=== PATIENT | male | born 1965 | race Caucasian/White ===

== ENCOUNTER 2021-02-28 18:50 | Emergency (ER) | payer MEDICAID ==
[~2021-02-28] VITALS: Ht 193 cm; Wt 117.9 kg
[2021-02-28 18:55] VITALS: BP 131/77
[2021-02-28] MEDS ORDERED: dexamethasone sod phosphate 10mg/ml inj PO STA (18:59)
[2021-02-28 20:09] LABS: D-DIMER 0.39 MG/L FEU (0-0.50); HEMOGLOBIN 16.5 g/dl (14.0-17.9); RED CELL DISTRIBUTION WIDTH 14.2 % (11.5-14.5)
[2021-02-28 20:11] LABS: BASOPHILS % (AUTO) 0.6 % (0-1); EOSINOPHILS % (AUTO) 0.1 % (0-6); HEMATOCRIT 48.3 % (42.0-52.0); LYMPHOCYTES # (AUTO) 1.7 X10'3 (1.1-4.8); LYMPHOCYTES % (AUTO) 32.5 % (21-51); MEAN CORPUSCULAR HEMOGLOBIN 31.2 PG (27.0-31.0); MEAN CORPUSCULAR HGB CONC 34.1 g/dL (33.0-36.5); MEAN CORPUSCULAR VOLUME 91.5 FL (78-98); MEAN PLATELET VOLUME 9.4 FL (7.4-10.4); MONOCYTES # (AUTO) 1.1 X10'3 (0-0.9); MONOCYTES % (AUTO) 20.5 % (2-12); NEUTROPHILS # (AUTO) 2.4 X10'3 (1.8-7.7); NEUTROPHILS % (AUTO) 46.3 % (42-75); PLATELET COUNT 126 X10'3 (140-440); RED BLOOD COUNT 5.27 X10'6 (4.70-6.10); WHITE BLOOD COUNT 5.2 X10'3 (4.5-11.0)
[2021-02-28 20:22] LABS: ALANINE AMINOTRANSFERASE 54 U/L (12-78); ALBUMIN 3.8 G/DL (3.4-5.0); ALBUMIN/GLOBULIN RATIO 0.8 (1.1-1.5); ALKALINE PHOSPHATASE 88 IU/L (46-116); ANION GAP 9 (8-16); ASPARTATE AMINO TRANSFERASE 23 U/L (10-37); BILIRUBIN,TOTAL 0.3 MG/DL (0.1-1.0); BLOOD UREA NITROGEN 18 MG/DL (7-18); BUN/CREATININE RATIO 13.8 (5.4-32.0); CALCIUM 8.3 MG/DL (8.5-10.1); CHLORIDE 100 MMOL/L (99-107); GLUCOSE 131 MG/DL (70-104); POTASSIUM 3.8 MMOL/L (3.5-5.1); SODIUM 139 MMOL/L (135-145); TOTAL CARBON DIOXIDE 30.4 MMOL/L (24-32); TOTAL PROTEIN 8.3 G/DL (6.4-8.2); eGFR 57 ML/MIN
[2021-02-28 20:25] LABS: TROPONIN I < 0.04 NG/ML (0.0-0.05)
[2021-02-28] MEDS ORDERED: ALBU8.5H17 IH (20:26)
[2021-02-28] MEDS ORDERED: BUDE180A INH (20:26)
[2021-02-28 23:47] LABS: TOTAL CELLS COUNTED 100
[2021-02-28 23:50] LABS: LARGE PLATELETS FEW; PLATELET ESTIMATE DECREASED
== END 2021-02-28 21:37 | disposition home or self-care (01) ==
LOC: ER 18:51
DX: U07.1 COVID-19 (principal); I10 Essential (primary) hypertension; D64.9 Anemia, unspecified
CPT/HCPCS: 36415; 71045; 80053; 84145; 84484; 85007; 85025; 85379; 87635; 99284; C9803; J1100

== ENCOUNTER 2021-03-05 12:37 | Emergency (ER) | payer MEDICAID ==
[~2021-03-05] VITALS: Ht 193 cm; Wt 113.6 kg
[~2021-03-05 12:37] MED LIST: ALBU8.5H17 IH; BUDE180A INH
[2021-03-05 12:58] VITALS: BP 124/82
== END 2021-03-05 14:32 | disposition home or self-care (01) ==
LOC: ER 12:38
DX: U07.1 COVID-19 (principal); R43.8 Other disturbances of smell and taste; R50.9 Fever, unspecified; R51.9 Headache, unspecified; R05.9 Cough, unspecified; R06.02 Shortness of breath; I10 Essential (primary) hypertension; Z86.2 Personal history of diseases of the blood and blood-forming organs and certain disorders involving the immune mechanism; Z79.899 Other long term (current) drug therapy
CPT/HCPCS: 99282

== ENCOUNTER 2025-01-04 08:01 | Inpatient (IN) | payer BC, MEDICAID ==
[~2025-01-04] VITALS: Ht 193 cm; Wt 112.6 kg
[2025-01-04] VITALS (7 sets, daily range): BP systolic 138–190; BP diastolic 84–110; PULSE 68–95; RESP 18–20; TEMP 97.7–98.1; O2SAT 96–97
[~2025-01-04 08:01] MED LIST changes: -BUDE180A INH; +BUDE180A5 INH
--- NOTE | 2025-01-04 08:08 | ELECTROCARDIOGRAPH REPORT ---
[facility] Test Date: 2025-01-04 Test Time: 08:06:16 Pat Name: MIKE ASH Department: EMERGENCY ROOM Room: Gender: M Director Of Institutional Giving: DIANDRA : 1965 Requested By: DAMARIS GALO Order Number: [id number] Reading MD: Measurements Intervals [place] Rate: 87 P: 75 NV: 162 QRS: 31 QRSD: 139 T: 56 QT: 395 QTc: 476 Interpretive Statements Sinus rhythm Right bundle branch block Minimal ST elevation, inferior leads Baseline wander in lead(s) III Please click the below link to view image of tracing.
[2025-01-04 08:24] LABS: MEAN PLATELET VOLUME 8.0 FL (7.4-10.4); RED CELL DISTRIBUTION WIDTH 14.0 % (11.5-14.5)
--- NOTE | 2025-01-04 08:26 | RADIOLOGY REPORT ---
CHEST RADIOGRAPH Indication: CP Technique: Single frontal view of the chest was obtained COMPARISON: None FINDINGS: Lines and Tubes: None Lungs: Clear Pleura: No effusion. No pneumothorax. Cardiomediastinal contours: Unremarkable Bones: Unremarkable IMPRESSION: No acute disease.
[2025-01-04 08:44] LABS: CREATININE 1.12 MG/DL (0.60-1.10); PRO BRAIN NATRIURETIC PEPTIDE 43 PG/ML (0-125); TOTAL CARBON DIOXIDE 31.8 MMOL/L (24-32); eCRCL 86 ML/MIN; eGFR 67 ML/MIN
--- NOTE | 2025-01-04 09:02 | Physician Documentation ---
History of Present Illness General Chief Complaint: Chest Pain Stated Complaint: CHEST PAIN Time Seen by MD: 09:01 Primary Medical Doctor: NO PMD History of Present Illness Initial Comments The patient is a 59-year-old male complains of intermittent right-sided chest pain since approximately 14 hours ago. The patient states he has intermittently had multiple episodes of right-sided chest discomfort. He denies any pleuritic component. He denies any cardiac history. Patient states he has been told he has hypertension but has not had that treated. Patient states he had a family member with coronary disease. Patient denies any smoking or illicit drug use. Patient denies any active shortness of breath he denies any fevers chills nausea or vomiting. Patient states currently his pain has resolved. He states his pain started when he was at work but not exerting himself. Medication Reconciliation Allergies: Coded Allergies: No Known Allergies (Unverified , 01/04/25) Scheduled Amlodipine Besylate (Amlodipine Besylate), 10 MG PO DAILY Losartan Potassium (Losartan Potassium), 50 MG PO DAILY Miscellaneous Medications Home Med List (No Home Medications), (Reported) Discontinued Medications Albuterol Sulfate (Proair Hfa), 2 PUFFS IH Q4H PRN for SOB or wheezing Discontinued Reason: patient no longer taking Budesonide (Pulmicort Flexhaler), 2 PUFFS INH Q12H Discontinued Reason: patient no longer taking Past Medical History Past Medical History: Hypertension, Anemia Past Surgical History: noncontributory Smoking: Non-Smoker Alcohol Use: None Lives In: Home Review of Systems All Other Systems at this time: Reviewed and Negative Physical Exam Physical Exam Vital Signs: Temperature: 97.0, Source: Temporal, Heart Rate: 70, Respiratory Rate: 18, BP: 161/99, Pulse Oximetry: 96, Weight: 112.600 Oxygen Flow Rate: 0 Physical Exam VITALS: Reviewed and as above. GENERAL: Alert, no apparent distress. HEENT: Normocephalic, atraumatic, PERRL, EOMI, dry mucosa, no erythema RESPIRATORY: Lungs clear, normal breath sounds, no respiratory distress. CHEST: No accessory muscle use, no retractions CV: Regular rate, rhythm, no edema, no murmur, No: JVD GI: Soft, non-tender, bowels sounds present, no rebound, guarding, or rigidity BACK: No CVA tenderness, or swelling MUSCULOSKELETAL: No deformities, no edema SKIN: Warm and dry, no rash NEURO: Oriented x4, No motor or sensory deficit PSYCH: Normal mood and affect, no agitation Progress Results/Orders Results/Orders Orders - OHDAMARIS SESAY MD Chest,Single View (01/04/25 08:02) Monitor (01/04/25 08:02) Saline Lock (01/04/25 08:02) Oxygen (01/04/25 08:02) Page Hospitalist (01/04/25 09:27) Fill Out Med Reconciliation (01/04/25 09:27) Completed Orders - DAMARIS MEJIA MD Chest,Single View (01/04/25 08:02) Cbc/Diff (01/04/25 08:02) BMP (01/04/25 08:02) PBNP (01/04/25 08:02) Electrocardiogram (01/04/25 08:02) Hs Troponin I W Calculations (01/04/25 08:02) Hs Troponin I W Calculations (01/04/25 10:02) Hs Troponin I W Calculations (01/04/25 11:02) D-Dimer (01/04/25 09:16) Vital Signs 01/04/25 01/04/25 01/04/25 01/04/25 08:04 08:51 08:53 10:00 Temp 97.0 97.0 Pulse 80 70 92 Resp 16 18 14 14 B/P (MAP) 155/90 161/99 (119) 142/96 (111) Pulse Ox 97 96 97 O2 Flow Rate 0 0 0 Laboratory Tests Test 01/04/25 08:06 White Blood Count 6.9 Red Blood Count 4.75 Hemoglobin 14.9 Hematocrit 44.0 Mean Corpuscular Volume 92.5 Mean Corpuscular Hemoglobin 31.3 H Mean Corpuscular Hemoglobin Concent 33.9 Red Cell Distribution Width 14.0 Platelet Count 158 Mean Platelet Volume 8.0 Neutrophils (%) (Auto) 52.7 Lymphocytes (%) (Auto) 32.5 Monocytes (%) (Auto) 11.7 Eosinophils (%) (Auto) 2.6 Basophils (%) (Auto) 0.5 Neutrophils # (Auto) 3.6 Lymphocytes # (Auto) 2.2 Monocytes # (Auto) 0.8 Eosinophils # (Auto) 0.2 Basophils # (Auto) 0.0 CBC Comment D-Dimer < 0.19 D-Dimer Comment Sodium Level 141 Potassium Level 4.4 Chloride Level 105 Carbon Dioxide Level 31.8 Anion Gap 4 L Blood Urea Nitrogen 11 Creatinine 1.12 H Estimated GFR/1.73 m2 67 BUN/Creatinine Ratio 9.8 L Glucose Level 117 H Calcium Level 8.8 Troponin I High Sensitivity 8 Pro-B-Type Natriuretic Peptide 43 Albumin 3.9 Chemistry Comments EKG/XRAY/CT/US/VASC/MRI EKG : Additional Comment The patient's EKG was interpreted by me as showing a sinus rhythm with a rate of 87 the patient has a normal axis he has a right bundle-branch block as EKG was otherwise interpreted as nonspecific borderline EKG. Time of the EKG was 8:06 Chest X-Ray : Additional Comments Patient: MIKE ASH Medical Record: [id number] [facility] : 1965, Age: 59 Sex: Male Location: ER Patient Status: REG ER Service Date/Time: 01/04/25801 Ordering Physician: DAMARIS MEJIA MD Exam: CHEST,SINGLE VIEW CHEST RADIOGRAPH Indication: CP Technique: Single frontal view of the chest was obtained COMPARISON: None FINDINGS: Lines and Tubes: None Lungs: Clear Pleura: No effusion. No pneumothorax. Cardiomediastinal contours: Unremarkable Bones: Unremarkable IMPRESSION: No acute disease. Medical Decision Making Findings Patient is a 59-year-old male with no cardiac history complaints of right-sided chest pain the patient has a heart score of four the patient has a right bundle- branch on his EKG, his troponin is unremarkable given the patient has a family history of cardiac disease as well as undiagnosed and untreated hypertension the patient will be admitted to the hospitalist case has been discussed with the hospitalist prior hospitalizations has been reviewed the patient's chest x-ray was interpreted as by myself as being a normal-appearing chest x-ray he has a normal cardiac silhouette normal mediastinum and normal-appearing lung rodriguez I have also reviewed the radiologist's interpretation. I have reviewed the patient's EKG which demonstrates a right bundle-branch block and a normal axis with a sinus rhythm of [address] abnormalities and I have interpreted as a borderline EKG prior hospitalizations has been reviewed labs were reviewed case was also discussed with the family member at the bedside. The patient is amenable to admission to the hospitalist. The patient's pulse oximetry was interpreted as normal and adequate. The patient's cardiac rhythm on the monitor was interpreted as a sinus rhythm by myself Departure Admitted to Inpatient Unit: yes, to hospitalist Impression: Primary Impression: Chest pain Qualified Codes: R07.9 - Chest pain, unspecified Referrals: NO PRIMARY CARE PROVIDER (PCP) Prescriptions Amlodipine Besylate (Amlodipine Besylate) 5 Mg Tablet 10 MG PO DAILY for 90 Days, #90 TAB Prov: PATTI MORRISP 01/05/25 Losartan Potassium (Losartan Potassium) 50 Mg Tablet 50 MG PO DAILY for 90 Days, #180 TAB Prov: PATTI MORRIS [facility] 01/05/25 Signature Scribe Signature: no scribe Attestation: The note accurately reflects work and decisions made by me.Damaris Mejia MD 01/06/25 19:29 DAMARIS MEJIA MD Jan 04, 2025 09:02
[2025-01-04] MEDS ORDERED: metoprolol tartrate 1mg/ml inj IV PRN (10:00)
[2025-01-04] MEDS ORDERED: magnesium sulf-water 4G/100mL 100 ML IV PRN (10:00)
[2025-01-04] MEDS ORDERED: ondansetron/PF 4mg/2ml inj IV PRN (10:00)
[2025-01-04] MEDS ORDERED: HYDROcodone/acetaminophen 5mg/325mg tablet PO PRN (10:00)
[2025-01-04] MEDS ORDERED: potassium Cl 20 mEq SR tablet PO PRN ×2 (10:00)
[2025-01-04] MEDS ORDERED: magnesium hydroxide 30ml (MOM) UD suspension PO PRN (10:00)
[2025-01-04] MEDS ORDERED: HYDROcodone/acetaminophen 10/325mg tab PO PRN (10:00)
[2025-01-04] MEDS ORDERED: aminophylline 250mg/10ml inj. IV PRN (10:00)
[2025-01-04] MEDS ORDERED: PERFLUTREN PROTEIN-A MICROSPHR (Optison) 0.22 MG/ML 3ML VIAL IV ONE (10:00)
[2025-01-04] MEDS ORDERED: potassium Cl 40MEQ/1/2NS 520ml 520 ML IV PRN (10:00)
[2025-01-04] MEDS ORDERED: magnesium sulf-water 2g/50mL 50 ML IV PRN (10:00)
[2025-01-04] MEDS ORDERED: mag hydrox/Alum hydrox/simeth 30ml oral suspension PO PRN (10:00)
[2025-01-04] MEDS ORDERED: NO HOME MEDS (10:07)
--- NOTE | 2025-01-04 12:08 | HISTORY AND PHYSICAL ---
History & Physical Providers to CC ~ History of Present Illness Reason for Admit\Complaint: Hypertensive emergency, r/o ACS History of Present Illness Renaldo Denise is a 59-year-old male with past medical history of hypertension who presented to the ED with chief complaint of intermittent chest pain x 2 days. Patient denies prior [place]/CAD, CVA, cardiac arrhythmia, DVT/PE, or GIB. Patient denies chest pain, palpitations, shortness of breath, loss of consciousness, abdominal pain, n/v/d, fever, chills, dysuria. He denies pleuritic component. Patient reports family history of [place]. Patient is to be admitted for further workups and treatment. Allergies: Coded Allergies: No Known Allergies (Unverified , 01/04/25) Home Medications Home Medications Active Reported No Home Medications (Home Med List) Each Past Medical History Past Medical History Hypertension Class I obesity Past Surgical History Surgical History Comment Denies Past Social History Social History Comment Alcohol: Denies Tobacco: Denies, never Illicit drug use: Denies Living situation: Lives at home with girlfriend ROS ROS Other than positives in HPI, all 14 review of systems are negative Exam Vitals: Vital Signs Date Time Temp Pulse Resp B/P (MAP) Pulse Ox O2 Delivery O2 Flow Rate FiO2 01/04/25 11:37 85 14 150/91 (110) 98 0 01/04/25 08:51 97.0 General: Lethargic, Fatigued, A&Ox 3, NAD HEENT: Normocephalic, PERRLA Neck: Supple, trachea midline, no JVD Chest: Clear to auscultation bilaterally Cardiovascular: RRR, S1&S2 Abdomen: Soft and nontender Extremities: No cyanosis/clubbing/or edema Central Nervous System: CN II-XII intact, no focal deficits Musculoskeletal: No paraspinal muscle tenderness, no muscle spasm Skin: Warm and intact Diagnostic Data Last Recorded Lab Results: 01/04/25 0801/04/25 08 Diagnostic Data: Laboratory Tests Test 01/04/25 08:06 D-Dimer < 0.19 MG/L FEU (0-0.50) D-Dimer Comment Additional Plan Assessment & Plan r/o ACS, HEART score 4 Hypertensive Emergency ANTOLIN vs CKD Class I obesity -trops negative, LDL 67, pBNP 43, A1c 5.3%, EKG sinus at 87pbm, RBBB, no ST depression/elevation, CXR negative; first-degree FH of [place] -amlodipine, hydralazine, prn nitroglycerin, telemetry, follow Lexiscan, TTE, strict I&Os, renal US, UA, UDS DVT/VTE Prophylaxis: heparin Code Status: Full Code I spent a total of 35 minutes discussing Advanced Care Planning measures with the patient. Advance care planning: Discussed with patient the importance of advance care planning in case of emergent situation. We discussed various resuscitative measures/ ACP with the patient at the time of admission. Patient voiced understanding and patient has decided on a full code status. Date of Service: Jan 04, 2025 Billing Provider: PATTI MORRIS Common Visit Codes: 29028-GURJHHV INP/OBS CARE (HIGH) Secondary Visit Codes: 79129-EHCCNOUI CARE PLAN 30 MINUTES PATTI MORRIS Jan 04, 2025 12:08
[2025-01-04 12:25] LABS: CHOL/HDL RATIO 3.8 (0.00-4.99); LDL CHOLESTEROL 67 MG/DL (50-100)
[2025-01-04] MEDS: aspirin 81mg, enteric-coated 1 TAB TABLET.DR PO ONE (12:34)
[2025-01-04] MEDS: normal saline 1000ml 1,000 ML IV SCH (12:34)
[2025-01-04] MEDS: hydrALAZINE 20mg/ml inj. IV STA (13:03)
--- NOTE | 2025-01-04 14:32 | RADIOLOGY REPORT ---
INDICATION: elena TECHNIQUE: Multiple real-time sonographic images of the kidneys and bladder were obtained. COMPARISON: None FINDINGS: The right kidney measures 13 cm in length, which is normal in size. There is normal echogen icity of the right kidney. No hydronephrosis. The left kidney measures 11 cm in length, which is normal in size. There is normal echogenicity of th e left kidney. No hydronephrosis. No large intraluminal masses are seen in the bladder. Prior to voiding the bladder volume measures vo lume 153 cc. IMPRESSION: 1. Normal sonographic appearance of the kidneys. No hydronephrosis.
[2025-01-04] MEDS: K and/or MAG REPLACEMENT MC SCH (20:00)
[2025-01-04] MEDS: docusate sod 100mg capsule PO SCH (20:00)
[2025-01-04] MEDS: heparin, porcine 5000 units/ml vial SQ SCH (20:02)
[2025-01-05] VITALS (10 sets, daily range): BP systolic 125–163; BP diastolic 77–111; PULSE 68–100; RESP 16–19; TEMP 98.5; O2SAT 96–99
[2025-01-05] MEDS: hydrALAZINE 20mg/ml inj. IV PRN (05:24)
[2025-01-05 05:42] LABS: LEUKOCYTE ESTERASE ,URINE NEGATIVE (Neg); NITRITES, URINE NEGATIVE (Neg); OCCULT BLOOD,URINE NEGATIVE (Neg)
[2025-01-05 05:44] LABS: UA COLLECTION TYPE URINAL
[2025-01-05 06:02] LABS: MEAN PLATELET VOLUME 8.9 FL (7.4-10.4); RED CELL DISTRIBUTION WIDTH 14.0 % (11.5-14.5)
[2025-01-05 06:11] LABS: URINE AMPHETAMINE SCREEN POSITIVE (Neg); URINE BARBITUATE SCREEN NEGATIVE (Neg); URINE BENZODIAZEPINES SCREEN NEGATIVE (Neg); URINE CANNABINOID SCREEN NEGATIVE (Neg); URINE COCAINE SCREEN NEGATIVE (Neg); URINE METHADONE SCREEN NEGATIVE (Neg); URINE OPIATE SCREEN NEGATIVE (Neg); URINE PHENCYCLIDINE SCREEN NEGATIVE (Neg)
[2025-01-05 06:19] LABS: CREATININE 0.93 MG/DL (0.60-1.10); TOTAL CARBON DIOXIDE 29.8 MMOL/L (24-32); eCRCL 104 ML/MIN; eGFR 83 ML/MIN
[2025-01-05] MEDS ORDERED: diazepam inj 5 MG/ML inj. IV PRN (07:30)
[2025-01-05] MEDS: regadenoson 0.4mg/5ml syringe IV PRN (09:25)
[2025-01-05] MEDS: aspirin 81mg, enteric-coated 1 TAB TABLET.DR PO SCH (11:12)
--- NOTE | 2025-01-05 11:53 | RADIOLOGY REPORT ---
Reason for study/Clinical History: unstable angina Comparison Study: None Myocardial Perfusion Study with SPECT Technique: The patient received an intravenous injection of 8.4 mCi of technetium-99m Sestamibi whi satinder at rest. After a short delay, SPECT tomographic images of the heart were obtained. The patient florencio fisher went to the stress lab where they received an intravenous Lexiscan utilizing standard protocol. 34.0 mCi of technetium-99m Sestamibi was injected intravenously immediately after the start of the infusion. Gated SPECT tomographic images of the heart were acquired and processed. Findings: Rotating planar images show no significant attenuation artifact. The left ventricular size is within normal limits. Stress tomographic images demonstrate normal perfusion. Resting tomographic images demonstrate a similar pattern. Gated portion of the study shows normal wall motion and myocardial thickening. The left ventricular ejection fraction is 52 %. (normal greater than 50%) Impression: Normal left ventricular size, wall motion, and function, without evidence of infarction or of myocard ium at ischemic risk. The left ventricular ejection fraction is 52 %.
[2025-01-05] MEDS ORDERED: NOR5T PO (12:11)
[2025-01-05] MEDS ORDERED: LOSA50TA64 PO (12:11)
[2025-01-05] MEDS: pantoprazole 40mg Tablet.DR PO ONE (12:30)
--- NOTE | 2025-01-05 15:03 | DISCHARGE SUMMARY ---
Discharge Summary Providers to CC ~ Discharge Summary Admission Diagnosis: r/o ACS Hospital Course DATE OF ADMISSION: 01/04/25 DATE OF DISCHARGE: 01/05/25 Discharge Diagnosis\Comment: Hypertensive emergency Methamphetamine abuse Metabolic encephalopathy 2/2 above ACS- ruled out r/o ACS, HEART score 4 Chest pain likely 2/2 GERD Methamphetamine abuse ANTOLIN- unable to exclude Class I obesity Operations\Procedures: None Consultants: None Complications: None Condition on DC: Stable New Medications: Amlodipine Besylate (Amlodipine Besylate) 5 Mg Tablet 10 MG PO DAILY for 90 Days, #90 TAB Losartan Potassium (Losartan Potassium) 50 Mg Tablet 50 MG PO DAILY for 90 Days, #180 TAB Continued Medications: Home Med List (No Home Medications) Each Discharge Summary: History of Present Illness Renaldo Denise is a 59-year-old male with past medical history of hypertension who presented to the ED with chief complaint of intermittent chest pain x 2 days. Patient denies prior [place]/CAD, CVA, cardiac arrhythmia, DVT/PE, or GIB. Patient denies chest pain, palpitations, shortness of breath, loss of consciousness, abdominal pain, n/v/d, fever, chills, dysuria. He denies pleuritic component. Patient reports family history of [place]. Patient is to be admitted for further workups and treatment. Hospital Course Diagnostic findings were notable for profoundly elevated blood pressure with systolic at 190, UDS positive for amphetamine. Physical exam was notable for profound lethargy and fatigue. Pertinent negative findings were negative Lexiscan, echocardiogram, troponin series, NT-pBNP, D-dimer, lipid panels, A1c, chest x-ray, renal ultrasound. Patient was treated with antihypertensives and supportive care and mentation came back to his baseline on the following day. Patient did not experience further complications throughout the entire hospital stay and made a good recovery. Patient was seen and examined on the day of discharge. On day of discharge, vss and labs unremarkable. All labs, diagnostic workups, discharge plan discussed with patient in details during visit before discharge. All questions and concerns answered to the best of my professional knowledge. Patient is to be discharged to home to self and to follow up with PCP with due weeks. Extensive education on absence of illegal drug use was provided upon discharge. Patient verbalizes understanding of risks associated with methamphetamine use. Physical Exam General: A&Ox 3, NAD HEENT: Normocephalic, PERRLA Neck: Supple, trachea midline, no JVD Chest: Clear to auscultation bilaterally Cardiovascular: RRR, S1&S2 GI: Soft and nontender Extremities: No cyanosis/clubbing/or edema OVERHEAD IRRIGATOR: CN II-XII intact, no focal deficits Musculoskeletal: No paraspinal muscle tenderness, no muscle spasm Skin: Warm and intact *Problems/Diagnosis: (1) Chest pain Status: Acute Total Time Spent on D/C: > 30 Minutes Date of Service: Jan 05, 2025 Billing Provider: PATTI MORRIS Common Visit Codes: 62491-SIP/OBS DISCH DAY >30min Problem Qualifiers (1) Chest pain: Qualified Codes: R07.9 - Chest pain, unspecified PATTI MORRIS Jan 05, 2025 15:01
[2025-01-06] MEDS ORDERED: pantoprazole 40mg Tablet.DR PO SCH (07:30)
--- NOTE | 2025-01-06 18:26 | CARDIOLOGY REPORT ---
APPROVED REPORT EXAM: Comprehensive 2D, Doppler, and color-flow Echocardiogram. Patient Location: 4023B Blood Pressure: 190/110 mmHg Heart Rate: 65 bpm Rhythm: NSR Indications Chest Pain Hypertension No raw hide trimmer No previous echo 2D Dimensions LA Diam4.4 cm IVSd 1.0 (0.7-1.1cm) LVDd 4.2 cm PWd 1.1 (0.7-1.1cm) IVSs 1.3 (0.8-1.2cm) LVDs 2.9 (2.5-4.0cm) Aortic Root(2D) 3.2 cm PWs 1.3 (0.8-1.2cm) LVOT Diameter 2.34 (1.8-2.4cm) LVEF(%) 61.0 (>50%) Ao Asc Diam.3.60 cmIVC 15.49 mm FS (%) 32.3 % SV 48.7 ml CO 3.1 L/min M-Mode Dimensions MV EPSS 1.2 (<0.5cm) Aortic Valve AoV Peak Gustavo. 123.3 cm/s AoV VTI 25.3 cm AO Peak GR. 6.1 mmHg AO Mean GR. 3 mmHg LVOT VTI 22.24 cm LVOT Peak Gustavo. 101.3 cm/s ABRAHAM(VTI)/BSA 3.77 cm2/m2 ABRAHAM (VTI) 3.77 cm2 Mitral Valve MV E Velocity 87.3 cm/s MV Peak Gr. 3 mmHg MV DECEL TIME 216 ms MV A Velocity 64.9 cm/s MV PHT 68 ms E/A Ratio 1.3 MVA (PHT) 3.24 cm2 MV VMax90.0 cm/s TDI Medial E' P. V 9.59 cm/s E/Medial E' 9.1 Tricuspid Valve RAP ESTIMATE 10 mmHg Pulmonary Vein S1 Velocity 41.0 cm/s D2 Velocity 44.2 cm/s PVa [id number] cm/s PVa [id number] msec LEFT VENTRICLE Normal LV size and wall thickness. Overall systolic function is normal. Overall LVEF is 60-65%. RIGHT VENTRICLE RV appears normal in size and function. ATRIA Left atrium is mildly dilated. AORTIC VALVE Trileaflet AV appears sclerotic without stenosis. No insufficiency. MITRAL VALVE MV is thickened with mild annular calcification and no stenosis. Trace mitral regurgitation. TRICUSPID VALVE The tricuspid valve is normal in structure. Trace tricuspid regurgitation. PULMONIC VALVE The pulmonary valve is normal in structure. Trace pulmonic regurgitation. GREAT VESSELS The aortic root is normal in size. Ascending aorta measured at 3.6 cm. The IVC is normal in size and collapses >50% with inspiration. PERICARDIUM There is no pericardial effusion. Other Information Study Quality: Adequate Conclusion Normal LV size and wall thickness. Overall systolic function is normal. Overall LVEF is 60-65%. RV appears normal in size and function. Left atrium is mildly dilated. Trileaflet AV appears sclerotic without stenosis. No insufficiency. MV is thickened with mild annular calcification and no stenosis. Trace mitral regurgitation. The tricuspid valve is normal in structure. Trace tricuspid regurgitation. The pulmonary valve is normal in structure. Trace pulmonic regurgitation. Ascending aorta measured at 3.6 cm. There is no pericardial effusion.
== END 2025-01-05 13:22 | disposition home or self-care (01) | DRG 391 ==
LOC: ER 08:01 → ED HOLD 10:06 → ORTHO 4S 12:40
PROVIDERS: ADMIT Nurse Practitioner Family; ATTEND Nurse Practitioner Family
PROC: 4A02XM4 Measurement of Cardiac Total Activity, External Approach (ICD-10-PCS; principal; 2025-01-05)
PROC: 3E033HZ Introduction of Radioactive Substance into Peripheral Vein, Percutaneous Approach (ICD-10-PCS; 2025-01-05)
DX: K21.9 Gastro-esophageal reflux disease without esophagitis (principal); G93.41 Metabolic encephalopathy; N17.9 Acute kidney failure, unspecified; I16.1 Hypertensive emergency; I10 Essential (primary) hypertension; E66.811 Obesity, class 1; Z68.30 Body mass index [BMI] 30.0-30.9, adult
CPT/HCPCS: 36415; 71045; 76770; 78452; 80048; 80053; 80061; 80305; 81003; 83036; 83735; 83880; 84484; 85025; 85379; 87081; 93005; 93017; 93306; 99285; A9500; G0378; J0360; J1644; J2785; J7030